=== PATIENT | female | born 1960 | race Caucasian/White ===

== ENCOUNTER 2020-09-16 08:37 | Emergency (ER) | payer BC ==
[~2020-09-16] VITALS: Ht 167.6 cm; Wt 72.6 kg
[~2020-09-16 08:37] MED LIST: ATOR40TA52 PO; HYDR-4833 PO; PRAM0.5T2 PO
[2020-09-16 09:23] VITALS: BP 127/77
[2020-09-16] MEDS ORDERED: cefTRIAXone SOD 1,000 MG VL IM ONE (09:45)
== END 2020-09-16 10:58 | disposition home or self-care (01) ==
LOC: ER 08:37
DX: J18.9 Pneumonia, unspecified organism (principal); Z20.822 Contact with and (suspected) exposure to COVID-19
CPT/HCPCS: 36415; 71045; 87426; 96372; 99284; C9803; J0696; U0003

== ENCOUNTER 2021-01-04 09:00 | Inpatient (IN) | payer BC ==
[~2021-01-04] VITALS: Ht 165.1 cm; Wt 87.3 kg
[2021-01-04] VITALS (11 sets, daily range): BP systolic 91–111; BP diastolic 45–73
[~2021-01-04 09:00] MED LIST changes: +CALC1TAB92 PO; -HYDR-4833 PO; +IBUP800T27 PO; +MULTCAP45 PO
[2021-01-04] MEDS ORDERED: ceFAZolin 1GM/50ML 100 ML IV ONE (09:17)
[2021-01-04] MEDS ORDERED: ACETAMINOPHEN IV 100 ML IV ONE (09:17)
[2021-01-04] MEDS ORDERED: PREGABALIN CAPSULE 75 MG CAP PO ONE (09:30)
[2021-01-04] MEDS ORDERED: CELECOXIB 100 MG CAP PO ONE (09:30)
[2021-01-04] MEDS ORDERED: ACETAMINOPHEN IV 1000 MG/100ML (10MG/ML) IV ONE (09:30)
[2021-01-04] MEDS ORDERED: TRANEXAMIC ACID 20 ML ONE (10:25)
[2021-01-04] MEDS ORDERED: BUPIVACAINE 0.25% INJ 50ML VIAL ONE (10:25)
[2021-01-04] MEDS ORDERED: VANCOMYCIN HCL 1000 MG VL ONE (10:32)
[2021-01-04] MEDS ORDERED: KETOROLAC TROMETH 30 MG/ML 1ML VIAL ONE (10:33)
[2021-01-04] MEDS ORDERED: MORPHINE SULF(PF) 0.5MG/ML 10ML VIAL ONE ×2 (10:33→10:49)
[2021-01-04] MEDS ORDERED: TETRACAINE 1% INJ 2 ML VIAL IJ ONE (10:44)
[2021-01-04] MEDS ORDERED: MIDAZOLAM HCL 1MG/1ML-2 ML VIAL ONE (10:49)
[2021-01-04] MEDS ORDERED: PHENYLEPHRINE HCL 10 MG/ML VL ONE (12:24)
[2021-01-04] MEDS ORDERED: ONDANSETRON HCL 4 MG/2 ML VIAL ONE (12:33)
[2021-01-04] MEDS: ceFAZolin 1GM/50ML 50 ML IV SCH ×2 (13:00→18:32)
[2021-01-04] MEDS ORDERED: NITROGLYCERIN 0.4 MG SL TAB SL PRN (13:00)
[2021-01-04] MEDS: LACTATED RINGER'S 1,000 ML IV SCH ×2 (13:00→23:00)
[2021-01-04] MEDS ORDERED: BISACODYL 5 MG EC TAB PO PRN (13:00)
[2021-01-04] MEDS ORDERED: ONDANSETRON HCL 4 MG/2 ML VIAL IV PRN ×2 (13:00→13:15)
[2021-01-04] MEDS ORDERED: MORPHINE SULF INJ 2 MG/ML SYRINGE 1ML IV PRN (13:00)
[2021-01-04] MEDS ORDERED: NALBUPHINE HCL 10 MG/1ml INJECTION SUBCUT ONE (13:15)
[2021-01-04] MEDS ORDERED: DexAMETHasone SOD PHOS 10MG/1ML VIAL INJ IV PRN (13:15)
[2021-01-04] MEDS ORDERED: NALOXONE HCL 0.4 MG/ML VIAL IV PRN (13:15)
[2021-01-04] MEDS ORDERED: diphenhdrAMINE HCL 50 MG/1 ML VL IV PRN (13:15)
[2021-01-04] MEDS ORDERED: HYDROmorphone HCL 2 MG/ML VL IV PRN (13:15)
[2021-01-04] MEDS: SODIUM CHLOR 0.9% PF (SALINE LOCK) 10ML VIAL/SYR IV SCH ×2 (14:11→21:19)
[2021-01-04] MEDS: ATORVASTATIN 20 MG TAB PO SCH (21:07)
[2021-01-04] MEDS: DOCUSATE SOD 100 MG CAP PO SCH (21:07)
[2021-01-04] MEDS: PRAMIPEXOLE DIHYDROCHLORIDE MO 0.25 MG TAB PO SCH (21:08)
[2021-01-05] VITALS (23 sets, daily range): BP systolic 67–109; BP diastolic 43–112
[2021-01-05] MEDS: ceFAZolin 1GM/50ML 50 ML IV SCH (01:08)
[2021-01-05] MEDS: KETOROLAC TROMETH 30 MG/ML 1ML VIAL IV PRN ×2 (05:05→16:20)
[2021-01-05 05:30] LABS: Hematocrit 26.1 % (36.0-46.0); Hemoglobin 8.8 g/dL (12.2-16.2)
[2021-01-05 05:53] LABS: Potassium 4.4 mmol/L (3.5-5.1)
[2021-01-05] MEDS: SODIUM CHLOR 0.9% PF (SALINE LOCK) 10ML VIAL/SYR IV SCH ×3 (05:58→20:28)
[2021-01-05 06:04] LABS: Albumin 2.8 g/dL (3.4-5.0); BUN/Creatinine Ratio 29.1; Bilirubin, Total 0.4 mg/dL (0.2-1.0); Calcium 7.9 mg/dL (8.5-10.1); Total Protein 5.5 g/dL (6.4-8.2)
[2021-01-05] MEDS: LACTATED RINGER'S 1,000 ML IV SCH ×3 (09:00→22:56)
[2021-01-05] MEDS: OXYCODONE W/ ACETAMINOPHEN 5/325MG TABLET PO PRN ×3 (09:10→20:29)
[2021-01-05] MEDS: Calcium Carbonate (Calcium) 600 MG TAB PO SCH (09:16)
[2021-01-05] MEDS: DOCUSATE SOD 100 MG CAP PO SCH ×2 (09:16→20:28)
[2021-01-05] MEDS: ENOXAPARIN SOD 40 MG/0.4 ML SYRINGE SC SCH (09:17)
[2021-01-05] MEDS: MULTIPLE VITAMIN TAB PO SCH (09:17)
[2021-01-05] MEDS: ATORVASTATIN 20 MG TAB PO SCH (20:28)
[2021-01-05] MEDS: PRAMIPEXOLE DIHYDROCHLORIDE MO 0.25 MG TAB PO SCH (20:30)
[2021-01-05] MEDS: HYDROmorphone HCL 2 MG/ML VL IV PRN (22:56)
[2021-01-06] MEDS: HYDROmorphone HCL 2 MG/ML VL IV PRN ×2 (04:24→09:57)
[2021-01-06 05:12] VITALS: BP 104/58
[2021-01-06] MEDS: SODIUM CHLOR 0.9% PF (SALINE LOCK) 10ML VIAL/SYR IV SCH (05:31)
[2021-01-06 06:19] LABS: Hematocrit 25.3 % (36.0-46.0); Hemoglobin 8.4 g/dL (12.2-16.2)
[2021-01-06 09:00] VITALS: BP 100/53
[2021-01-06] MEDS: ENOXAPARIN SOD 40 MG/0.4 ML SYRINGE SC SCH (09:55)
[2021-01-06] MEDS: DOCUSATE SOD 100 MG CAP PO SCH (09:55)
[2021-01-06] MEDS: MULTIPLE VITAMIN TAB PO SCH (09:55)
[2021-01-06] MEDS: Calcium Carbonate (Calcium) 600 MG TAB PO SCH (09:55)
[2021-01-06] MEDS ORDERED: PNEUMOCOCCAL VACC POLYS 25 MCG/0.5 ML VIAL IM ONE (10:00)
[2021-01-06 10:27] VITALS: BP 100/53
== END 2021-01-06 11:23 | disposition home health service (06) | DRG 470 ==
LOC: SUR 09:00 → TELE 12:47 → TELE-WESTW 15:31
PROVIDERS: ADMIT Orthopaedic Surgery Adult Reconstructive Orthopaedic Surgery; ATTEND Orthopaedic Surgery Adult Reconstructive Orthopaedic Surgery
PROC: 8E0Y0CZ Robotic Assisted Procedure of Lower Extremity, Open Approach (ICD-10-PCS; 2021-01-04)
PROC: 0SRB0JZ Replacement of Left Hip Joint with Synthetic Substitute, Open Approach (ICD-10-PCS; principal; 2021-01-04 10:51)
DX: M16.12 Unilateral primary osteoarthritis, left hip (principal); Z20.822 Contact with and (suspected) exposure to COVID-19
CPT/HCPCS: 36415; 72170; 80053; 85014; 85018; 86850; 86900; 86901; 97110; 97116; 97530; G0378; J0131; J0690; J1885; J2250; J2405; J3490